=== PATIENT | female | born 1980 | race Caucasian/White ===

== ENCOUNTER 2017-01-23 16:47 | Emergency (ER) | payer OTHER ==
[~2017-01-23] VITALS: Ht 167.6 cm; Wt 99.5 kg
[~2017-01-23 16:47] MED LIST: ASPI81TA28 PO; LEVO100T7 PO; METF-384 PO; PRED-301 PO; PRENTAB26 PO; TYLOTC500 PO
[2017-01-23 16:50] VITALS: TEMP 36.9; Ht 167.6 cm; Wt 99.5 kg
[2017-01-23] MEDS ORDERED: HYDR-5688 PO (17:22)
[2017-01-23] MEDS ORDERED: LEVO112T4 PO (17:23)
[2017-01-23 17:26] LABS: BASO % 0.3 %; BASO ABS # 0.03 K/uL (0-0.2); COMPLETE YES; EOS % 1.2 %; HEMATOCRIT 42.3 % (37-47); IG% 0.4 %; LYMPH % 19.9 %; LYMPH ABS # 2.18 K/uL (1.2-3.4); MEAN CELL VOLUME 85.5 fL (80-100); MEAN CORPUSCULAR HEMOGLOBIN 28.5 pg (25-34); MEAN CORPUSCULAR HGB CONC 33.3 g/dl (32-36); MEAN PLATELET VOLUME 9.7 fL (7.4-10.4); MONO % 6.7 %; NEUT % 71.5 %; PLATELET COUNT 358 K/uL (130-400); RED BLOOD COUNT 4.95 M/uL (4.2-5.4); WHITE BLOOD COUNT 10.93 K/uL (4.8-10.8)
[2017-01-23] MEDS ORDERED: NVLGIPEN SC (17:27)
[2017-01-23] MEDS ORDERED: LVMIPEN SC (17:27)
[2017-01-23] MEDS ORDERED: LABETALOL HCL 100 MG TAB PO ONE (17:30)
[2017-01-23 18:10] LABS: BUN/CREATININE RATIO 15.6 (10-20); CALCIUM 9.3 mg/dl (8.5-10.1); CREATININE 0.7 mg/dl (0.60-1.20); POTASSIUM 3.8 mmol/L (3.5-5.1)
[2017-01-23 18:42] LABS: URINE APPEARANCE CLEAR (CLEAR); URINE BILIRUBIN NEG (NEG); URINE COLOR YELLOW; URINE EPITHELIAL CELL AUTO >30 /lpf (0-5); URINE NITRITE NEG (NEG); URINE SPECIFIC GRAVITY 1.025 (1.000-1.030); UROBILINOGEN NEG (NEG)
[2017-01-23 18:46] LABS: MANUAL MICROSCOPIC REQUIRED? NO; REVIEW REQ? YES
[2017-01-23 18:54] LABS: URINE MUCUS PRESENT (NONE PRSENT)
[2017-01-23] MEDS ORDERED: LBT/100 PO (19:04)
[2017-01-23 19:14] VITALS: BP 158/100; PULSE 94; O2SAT 98
--- NOTE | 2017-01-23 19:33 | EMERGENCY ROOM VISIT NOTE ---
History Report prepared by Johana: Roseanna Yip Under the Supervision of: Dr. Doron Olivares M.D. First contact with patient: 17:11 Chief Complaint: HYPERTENSION Stated Complaint: ELEVATED BP 178/108 History of Present Illness The patient is a 36 year old female who presents to the Emergency Room with complaints of constant hypertension beginning today. She reports that her examination proctor said that her pressure was 157/102 earlier today. The patient reports that she checked her blood pressure again and it was 176/108. She states that she is 5 weeks and has been 8 times, 2 of which were ectopic pregnancies. She denies being hypertensive with past pregnancies. The patient also reports taking prednisone for psoriatic arthritis. She denies a headache, chest pain, shortness of breath, swelling to extremities, urinary symptoms, abdominal pain and vaginal bleeding. Source of History: patient Onset: today Position: other (global) Quality: other (hypertension) Timing: constant Associated Symptoms: No headache, No chest pain, No SOB, No urinary symptoms Note: also denies: swelling to extremities and vaginal bleeding Review of Systems See HPI for pertinent positives & negatives. A total of 10 systems reviewed and were otherwise negative. Past Medical & Surgical Medical Problems: (1) Cholecystectomy (2) Kidney stone (3) Miscarriage (4) Thyroid disease (5) Type 2 diabetes mellitus Surgical Problems: (1) H/O: Family History Diabetes mellitus Gallbladder disease Heart disease Hypertension Social History Smoking Status: Never Smoker Alcohol Use: none Marital Status: in relationship Housing Status: lives with significant other Occupation Status: employed Current/Historical Medications Scheduled Aspirin (Aspirin Ec), 81 MG PO DAILY Insulin Aspart (Novolog Flexpen), 30-60 SC AC Insulin Detemir (Levemir Flextouch), 50-60 SC HS Labetalol Hcl (Normodyne), 100 MG PO BID Levothyroxine Sodium (Levothyroxine Sodium), 112 MCG PO DAILY Metformin Hcl (Glucophage), 2,000 MG PO BID Multivit/Min/Iron/Fol Ac/Pren ( Vitamin), 1 TAB PO DAILY Prednisone (Prednisone), 5 MG PO DAILY Scheduled PRN Hydrocodone/Acetaminophen 5MG/325MG ([place] 5MG/325MG), 1 TAB PO BID PRN for Pain Allergies Coded Allergies: Quinolones (Verified Allergy, Severe, HIVES, 01/23/17) pt is not aware of this allergy Ciprofloxacin (Unverified Allergy, Unknown, hives , 01/23/17) Physical Exam Vital Signs Date Time Temp Pulse Resp B/P (MAP) Pulse Ox O2 Delivery O2 Flow Rate FiO2 01/23/17 19:14 94 24 158/100 98 Room Air 01/23/17 18:55 101 20 165/103 98 Room Air 01/23/17 18:06 96 01/23/17 18:05 97 20 164/111 98 Room Air 01/23/17 16:50 36.9 117 20 185/114 97 Room Air Physical Exam Constitutional: Vital signs reviewed. Eyes: Pupils are equal round reactive to light. Conjunctiva are noninjected. ENT: Pharynx is clear without erythema or exudate. Mucous membranes are moist. Neck supple without meningeal signs. Respiratory: Clear to auscultation bilaterally. Breath sounds are equal bilaterally. Cardiovascular: Regular rate and rhythm. No rubs or gallops. GI: Soft, nondistended and nontender. Bowel sounds are present. Musculoskeletal: No peripheral edema. No lower extremity tenderness. Integumentary: No cyanosis. Neurological: The patient is awake and alert. No focal deficits. Psychiatric: Normal affect. Medical Decision & Procedures Laboratory Results 01/23/17 17:00 Red Blood Count 4.95, Mean Corpuscular Volume 85.5, Mean Corpuscular Hemoglobin 28.5, Mean Corpuscular Hemoglobin Concent 33.3, Mean Platelet Volume 9.7, Neutrophils (%) (Auto) 71.5, Lymphocytes (%) (Auto) 19.9, Monocytes (%) (Auto) 6.7, Eosinophils (%) (Auto) 1.2, Basophils (%) (Auto) 0.3, Neutrophils # (Auto) 7.82, Lymphocytes # (Auto) 2.18, Monocytes # (Auto) 0.73, Eosinophils # (Auto) 0.13, Basophils # (Auto) 0.03 01/23/17 17:00 Test 01/23/17 17:00 01/23/17 17:50 White Blood Count 10.93 K/uL (4.8-10.8) Red Blood Count 4.95 M/uL (4.2-5.4) Hemoglobin 14.1 g/dL (12.0-16.0) Hematocrit 42.3 % (37-47) Mean Corpuscular Volume 85.5 fL (80-100) Mean Corpuscular Hemoglobin 28.5 pg (25-34) Mean Corpuscular Hemoglobin Concent 33.3 g/dl (32-36) Platelet Count 358 K/uL (130-400) Mean Platelet Volume 9.7 fL (7.4-10.4) Neutrophils (%) (Auto) 71.5 % Lymphocytes (%) (Auto) 19.9 % Monocytes (%) (Auto) 6.7 % Eosinophils (%) (Auto) 1.2 % Basophils (%) (Auto) 0.3 % Neutrophils # (Auto) 7.82 K/uL (1.4-6.5) Lymphocytes # (Auto) 2.18 K/uL (1.2-3.4) Monocytes # (Auto) 0.73 K/uL (0.11-0.59) Eosinophils # (Auto) 0.13 K/uL (0-0.5) Basophils # (Auto) 0.03 K/uL (0-0.2) RDW Standard Deviation 44.9 fL (36.4-46.3) RDW Coefficient of Variation 14.4 % (11.5-14.5) Immature Granulocyte % (Auto) 0.4 % Immature Granulocyte # (Auto) 0.04 K/uL (0.00-0.02) Anion Gap 8.0 mmol/L (3-11) Est Creatinine Clear Calc Drug Dose 130.9 ml/min Estimated GFR () 128.3 Estimated GFR (Non- 110.7 BUN/Creatinine Ratio 15.6 (10-20) Calcium Level 9.3 mg/dl (8.5-10.1) Total Bilirubin 0.4 mg/dl (0.2-1) Direct Bilirubin 0.1 mg/dl (0-0.2) Aspartate Amino Transf (AST/SGOT) 20 U/L (15-37) Alanine Aminotransferase (ALT/SGPT) 43 U/L (12-78) Alkaline Phosphatase 64 U/L (45-117) Total Protein 7.5 gm/dl (6.4-8.2) Albumin 3.7 gm/dl (3.4-5.0) Urine Color YELLOW Urine Appearance CLEAR (CLEAR) Urine pH 6.0 (4.5-7.5) Urine Specific [place] 1.025 (1.000-1.030) Urine Protein 1+ (NEG) Urine Glucose (UA) NEG (NEG) Urine Ketones NEG (NEG) Urine Occult Blood NEG (NEG) Urine Nitrite NEG (NEG) Urine Bilirubin NEG (NEG) Urine Urobilinogen NEG (NEG) Urine Leukocyte Esterase NEG (NEG) Urine WBC (Auto) 1-5 /hpf (0-5) Urine RBC (Auto) 0-4 /hpf (0-4) Urine Hyaline Casts (Auto) 0 /lpf (0-5) Urine Epithelial Cells (Auto) >30 /lpf (0-5) Urine Bacteria (Auto) NEG (NEG) Urine Crystals CALCIUM OXALATE (NONE Urine Mucus PRESENT (NONE PRSENT) Laboratory results as reviewed by me. Medications Administered Medications (Trade) Dose Ordered Sig/Newton Route Start Time Stop Time Status Last Admin Dose Admin Labetalol HCl (Normodyne Tab) 100 mg NOW ONCE PO 01/23/17 17:30 01/23/17 17:31 DC 01/23/17 18:10 100 MG ECG Indication: other (hypertension) Rate (beats per minute): 95 Rhythm: normal sinus Findings: no acute ischemic change, no ectopy ED Course 171: The patient was evaluated in room C7. A complete history and physical exam was performed. 0: Ordered Labetalol HCl 100 mg PO. 0: I spoke with Dr. Upton and she agrees with Labetalol and outpatient follow-up. 1908: I talked about the treatment plan and recommendations with the patient. 1914: Upon reevaluation, the patient appeared to have improvement of her symptoms. I discussed tonight's findings with her. She verbalized agreement of the treatment plan. She was discharged home. Medical Decision This is a 36-year-old female presents with hypertension in the setting of . Differential diagnosis includes high blood pressure, preeclampsia, help syndrome, renal dysfunction. I did perform a limited focused review of portions of the patient's old chart on the electronic medical record. The patient has been hypertensive on previous visits. Blood Pressure Screening: Patient was found to have an elevated blood pressure and was referred to their primary doctor for recheck and further treatment. Medication Reconciliation: I attest that I have personally reviewed the patient' s current medication list. I did evaluate the patient as noted above. The patient is presenting with asymptomatic hypertension. I did talk to the ED pharmacist who recommended treating her with labetalol 100 mg twice a day. I did treat her with labetalol 100 mg by mouth here. IV access was established. The patient was placed on a continuous monitoring and evaluation advisor. I did order and personally review the patient's 12- lead EKG as described above. I did order and review the patient's blood work as noted in the electronic medical record. Urinalysis shows 1+ protein. I did discuss the test results with the patient. I did talk to the director medical affairs on- call who agreed with management with labetalol as an outpatient. I did discuss the plan with the patient who voiced understanding and agreement. The patient was discharged with a 20 day prescription of labetalol 100 mg twice a day. She was given return instructions as outlined below. Consults Time Called: 1849 Consulting Physician: Dr. Won Gamble Returned Call: [phone] Upton and she agrees with Labetalol and outpatient follow-up. Impression Primary Impression: Hypertension affecting in first trimester Scribe Attestation The scribe's documentation has been prepared under my direct and personally reviewed by me in its entirety. I confirm that the note above accurately reflects all work, treatment, procedures, and medical decision making performed by me. Departure Information Dispostion Home / Self-Care Prescriptions Labetalol Hcl (NORMODYNE) 100 Mg Tab 100 MG PO BID for 20 Days, #40 TAB Prov: Doron Olivares M.D. 01/23/17 Referrals Joel Conklin M.D. (PCP) Forms HOME CARE DOCUMENTATION FORM, IMPORTANT VISIT INFORMATION, WORK / SCHOOL INSTRUCTIONS Patient Instructions ED Hypertension [facility] [place], My [facility] Additional Instructions You have been examined and treated today on an emergency basis only. This is not a substitute for, or an effort to provide, complete comprehensive medical care. It is impossible to recognize and treat all injuries or illnesses in a single emergency department visit. It is therefore important that you follow up closely with your physician. Call as soon as possible for an appointment. Return for worsening symptoms or if you develop fever, vomiting, headaches, swelling in your legs, chest pain, shortness of breath or any other concerning symptoms.
== END 2017-01-23 19:36 | disposition home or self-care (01) ==
LOC: C.EDB 16:49 → C.EDC 19:36
DX: O10.011 Pre-existing essential hypertension complicating pregnancy, first trimester (principal); E07.9 Disorder of thyroid, unspecified; E11.9 Type 2 diabetes mellitus without complications; Z83.3 Family history of diabetes mellitus; Z82.49 Family history of ischemic heart disease and other diseases of the circulatory system; Z79.82 Long term (current) use of aspirin; Z79.4 Long term (current) use of insulin

== ENCOUNTER 2017-02-17 19:11 | Emergency (ER) | payer OTHER ==
[~2017-02-17] VITALS: Ht 167.6 cm; Wt 104.5 kg
[~2017-02-17 19:11] MED LIST changes: -ASPI81TA28 PO; +HYDR-5688 PO; -LEVO100T7 PO; +LEVO112T4 PO; +LVMIPEN SC; +NVLGIPEN SC; -PRED-301 PO; -PRENTAB26 PO; -TYLOTC500 PO
[2017-02-17 19:16] VITALS: TEMP 36.6; Ht 167.6 cm; Wt 104.5 kg
[2017-02-17] MEDS ORDERED: SODIUM CHLORIDE 0.9% 1000ML 1,000 ML IV STA (19:28)
--- NOTE | 2017-02-17 19:47 | EMERGENCY ROOM VISIT NOTE ---
History Report prepared by Johana: Zelda Christiansen Under the Supervision of: Dr. Victoriano Gentile M.D. First contact with patient: 19:26 Chief Complaint: ED VAG BLEEDING Stated Complaint: BLEEDING ALMOST 9 WEEKS PREG History of Present Illness The patient is a 36 year old female who presents to the Emergency Room with complaints of persistent vaginal bleeding for the past 3 hours. She is almost 9 weeks and reports she experienced a gush of "bright red blood" and continued bleeding at 1630 this afternoon. She noticed "a little bit of tissue" mixed in with the blood. Her last ultrasound was this past , 4 days ago. A normal fetus and heartbeat were seen on ultrasound and there were no concerns at that visit. The patient admits to a history of previous miscarriages and ectopic pregnancies. She believes this is her "6th or 8th" , but is not completely sure. The patient denies any current abdominal pain or cramping. She denies any recent fevers, chills, cough or cold symptoms, nausea, vomiting or diarrhea. 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 The patient denies any history of eclampsia but notes her blood pressure has been elevated with her current . Source of History: patient Onset: 1630 today Position: other (vagina) Quality: other (vaginal bleeding) Timing: other (persistent) Associated Symptoms: No fevers, No chills, No cough (cough or cold symptoms) , No nausea, No vomiting, No abdominal pain, No diarrhea Review of Systems See HPI for pertinent positives and negatives. A total of ten systems were reviewed and were otherwise negative. Past Medical & Surgical Medical Problems: (1) Cholecystectomy (2) Kidney stone (3) Miscarriage (4) Thyroid disease (5) Type 2 diabetes mellitus Surgical Problems: (1) H/O: Family History Diabetes mellitus Gallbladder disease Heart disease Hypertension Social History Smoking Status: Never Smoker Alcohol Use: none Drug Use: none Marital Status: in relationship Housing Status: lives with significant other Occupation Status: employed Current/Historical Medications Scheduled Aspirin (Aspirin Ec), 81 MG PO DAILY Insulin Aspart (Novolog Flexpen), 80 UNITS SQ TI Insulin Aspart (Novolog Flexpen), 40 UNITS SQ UD Insulin Detemir (Levemir Flextouch), 60-80 SC HS Labetalol HCl (Labetalol HCl), 200 MG PO BID Levothyroxine Sodium (Levothyroxine Sodium), 112 MCG PO DAILY Metformin Hcl (Glucophage), 1,000 MG PO BID Multivit/Min/Iron/Fol Ac/Pren ( Vitamin), 1 TAB PO DAILY Prednisone (Prednisone), 5 MG PO DAILY Scheduled PRN Hydrocodone/Acetaminophen 5MG/325MG ([place] 5MG/325MG), 1 TAB PO BID PRN for Pain Allergies Coded Allergies: Quinolones (Verified Allergy, Severe, HIVES, 01/23/17) pt is not aware of this allergy Ciprofloxacin (Unverified Allergy, Unknown, hives , 01/23/17) Physical Exam Vital Signs Date Time Temp Pulse Resp B/P (MAP) Pulse Ox O2 Delivery O2 Flow Rate FiO2 02/17/17 22:11 83 16 142/79 97 Room Air 02/17/17 21:42 85 16 140/73 97 Room Air 02/17/17 19:16 36.6 99 16 145/103 96 Room Air Physical Exam GENERAL: Awake, alert, well-appearing, in no distress HENT: Normocephalic, atraumatic. Oropharynx unremarkable. Dry mucous membranes. EYES: Normal conjunctiva. Sclera non-icteric. NECK: Supple. No nuchal rigidity. FROM. No JVD. RESPIRATORY: Clear to auscultation. CARDIAC: Regular rate, normal rhythm. Extremities warm and well perfused. Pulses equal. ABDOMEN: Soft, gravid abdomen consistent with a of 7 to 9 weeks. No tenderness to palpation. No rebound or guarding. PELVIS: Scant bleeding from closed cervical os, normal mucosa, no CMT. RECTAL: Deferred. MUSCULOSKELETAL: Chest examination reveals no tenderness. The back is symmetrical on inspection without obvious abnormality. There is no CVA tenderness to palpation. No joint edema. LOWER EXTREMITIES: Calves are equal size bilaterally and non-tender. No edema. No discoloration. NEURO: Normal sensorium. No sensory or motor deficits noted. SKIN: No rash or jaundice noted. Medical Decision & Procedures ER Provider Diagnostic Interpretation: Radiology results as stated below per my review and interpretation: A transabdominal bedside ultrasound showed a gestational sac, however this is limited by the ultrasound being transabdominal, so there is an indeterminate IUP. Radiology results as stated below per my review and radiologist interpretation: LIMITED (US) CLINICAL HISTORY: vaginal bleeding r/o AsB pain TECHNIQUE: Ultrasound COMPARISON STUDY: None FINDINGS: Single, viable intrauterine . Estimated gestational age is 7 weeks 6 days. heart rate 1 67 bpm. Small curvilinear. Represent [place] contraction. Right ovary measures 4 cm in maximum dimension. Contains a 2 cm corpus luteum cyst. Left ovary is not well seen due to overlying bowel content. IMPRESSION: 1. Single, viable intrauterine approximately 7 weeks 6 days gestational age. 2. A heartbeat is confirmed 3. 2 cm corpus luteum cyst right ovary The above report was generated using voice recognition software. It may contain grammatical, syntax or spelling errors. Electronically signed by: Grabiel Olsen M.D. 02/17/2017 9:10 PM Laboratory Results 02/17/17 20:10 Red Blood Count 4.50, Mean Corpuscular Volume 86.0, Mean Corpuscular Hemoglobin 29.1, Mean Corpuscular Hemoglobin Concent 33.9, Mean Platelet Volume 9.4, Neutrophils (%) (Auto) 67.3, Lymphocytes (%) (Auto) 21.7, Monocytes (%) (Auto) 7.5, Eosinophils (%) (Auto) 2.9, Basophils (%) (Auto) 0.2, Neutrophils # (Auto) 6.40, Lymphocytes # (Auto) 2.07, Monocytes # (Auto) 0.71, Eosinophils # (Auto) 0.28, Basophils # (Auto) 0.02 02/17/17 20:10 Test 02/17/17 20:05 02/17/17 20:10 02/17/17 20:20 Urine Color DK YELLOW Urine Appearance CLOUDY (CLEAR) Urine pH 6.0 (4.5-7.5) Urine Specific [place] 1.025 (1.000-1.030) Urine Protein TRACE (NEG) Urine Glucose (UA) NEG (NEG) Urine Ketones TRACE (NEG) Urine Occult Blood 3+ (NEG) Urine Nitrite NEG (NEG) Urine Bilirubin NEG (NEG) Urine Urobilinogen NEG (NEG) Urine Leukocyte Esterase NEG (NEG) Urine WBC (Auto) 1-5 /hpf (0-5) Urine RBC (Auto) 5-10 /hpf (0-4) Urine Hyaline Casts (Auto) 1-5 /lpf (0-5) Urine Epithelial Cells (Auto) >30 /lpf (0-5) Urine Bacteria (Auto) NEG (NEG) Urine Crystals CALCIUM OXALATE (NONE White Blood Count 9.52 K/uL (4.8-10.8) Red Blood Count 4.50 M/uL (4.2-5.4) Hemoglobin 13.1 g/dL (12.0-16.0) Hematocrit 38.7 % (37-47) Mean Corpuscular Volume 86.0 fL (80-100) Mean Corpuscular Hemoglobin 29.1 pg (25-34) Mean Corpuscular Hemoglobin Concent 33.9 g/dl (32-36) Platelet Count 273 K/uL (130-400) Mean Platelet Volume 9.4 fL (7.4-10.4) Neutrophils (%) (Auto) 67.3 % Lymphocytes (%) (Auto) 21.7 % Monocytes (%) (Auto) 7.5 % Eosinophils (%) (Auto) 2.9 % Basophils (%) (Auto) 0.2 % Neutrophils # (Auto) 6.40 K/uL (1.4-6.5) Lymphocytes # (Auto) 2.07 K/uL (1.2-3.4) Monocytes # (Auto) 0.71 K/uL (0.11-0.59) Eosinophils # (Auto) 0.28 K/uL (0-0.5) Basophils # (Auto) 0.02 K/uL (0-0.2) RDW Standard Deviation 46.6 fL (36.4-46.3) RDW Coefficient of Variation 14.9 % (11.5-14.5) Immature Granulocyte % (Auto) 0.4 % Immature Granulocyte # (Auto) 0.04 K/uL (0.00-0.02) Anion Gap 8.0 mmol/L (3-11) Est Creatinine Clear Calc Drug Dose 151.7 ml/min Estimated GFR () 133.5 Estimated GFR (Non- 115.2 BUN/Creatinine Ratio 13.2 (10-20) Calcium Level 9.3 mg/dl (8.5-10.1) Human Chorionic Gonadotropin, Quant 24643 mIU/mL Laboratory results reviewed by me Medications Administered Medications (Trade) Dose Ordered Sig/Newton Route Start Time Stop Time Status Last Admin Dose Admin Sodium Chloride 1,000 ml @ 999 mls/hr Q1H1M STAT IV 02/17/17 19:28 02/17/17 20:28 DC 02/17/17 20:15 999 MLS/HR ED Course 1927: NSS 1000 ml @ 999 mls/hr IV. 193: The patient was evaluated in room C9. A complete history and physical exam was performed. 2209: I reevaluated the patient. She is feeling better. I discussed her results and discharge instructions and she verbalized complete understanding and agreement. Medical Decision I reviewed the patient's past medical history, medications, and the nursing notes as described above. The differential diagnoses considered include spontaneous , placenta previa, placental abruption The patient with pmhx of pior miscarriages presents to the emergency department with vaginal bleeding that is being followed by her OB in the setting of being 9 weeks per HPI. Arrives in NAD. AF with BP 140s. H/H unremarkable. Rh+ , TVUS +IUP with heartbeat. Pelvic exam with small amount of blood from closed os. Slight protein in urine in setting of elevated BP. Denies any sx of JIMENEZ, vision changes, abd pain. Patient currently on BB and followed for her BP during this . Findings and plan for follow-up d/w patient. Patient agreeable and d/c'd per discharge instructions. Blood Pressure Screening Patient's blood pressure: Elevated blood pressure Blood pressure disposition: Referred to PCP (The patient will be referred to her [employer] P[employer]ER for her elevated blood pressure) Impression Primary Impression: First trimester bleeding Scribe Attestation The scribe's documentation has been prepared under my direction and personally reviewed by me in its entirety. I confirm that the note above accurately reflects all work, treatment, procedures, and medical decision making performed by me. Departure Information Dispostion Home / Self-Care Referrals Joel Conklin M.D. (PCP) Patient Instructions Bleeding Early Preg, ED Proteinuria, My [facility] Additional Instructions Please follow up with your electricity trading analyst tomorrow for reevaluation to discuss your vaginal bleeding, and your elevated blood pressure, and the small amount of protein your your urine today. Your ultrasound showed a normal uterine . Otherwise, your exam, ultrasound, and lab results did not show signs of an emergent condition at this time. Return to the emergency department for worsening symptoms as described in the accompanying instructions.
[2017-02-17] MEDS ORDERED: LBT200 PO (19:59)
[2017-02-17] MEDS ORDERED: NVLGI/PEN SQ ×2 (19:59)
[2017-02-17 20:22] LABS: BASO % 0.2 %; BASO ABS # 0.02 K/uL (0-0.2); COMPLETE YES; EOS % 2.9 %; HEMATOCRIT 38.7 % (37-47); IG% 0.4 %; LYMPH % 21.7 %; LYMPH ABS # 2.07 K/uL (1.2-3.4); MEAN CORPUSCULAR HEMOGLOBIN 29.1 pg (25-34); MEAN CORPUSCULAR HGB CONC 33.9 g/dl (32-36); MEAN PLATELET VOLUME 9.4 fL (7.4-10.4); MONO % 7.5 %; NEUT % 67.3 %; PLATELET COUNT 273 K/uL (130-400); WHITE BLOOD COUNT 9.52 K/uL (4.8-10.8)
[2017-02-17 20:38] LABS: BUN/CREATININE RATIO 13.2 (10-20); CALCIUM 9.3 mg/dl (8.5-10.1); CREATININE 0.62 mg/dl (0.60-1.20); POTASSIUM 3.8 mmol/L (3.5-5.1)
[2017-02-17] MEDS ORDERED: PRED-301 PO (20:45)
[2017-02-17] MEDS ORDERED: ASPI81TA28 PO (20:45)
[2017-02-17 20:50] LABS: URINE APPEARANCE CLOUDY (CLEAR); URINE BILIRUBIN NEG (NEG); URINE COLOR DK YELLOW; URINE EPITHELIAL CELL AUTO >30 /lpf (0-5); URINE NITRITE NEG (NEG); URINE SPECIFIC GRAVITY 1.025 (1.000-1.030); UROBILINOGEN NEG (NEG); ZZUR CULT IF INDIC CLEAN CATCH NO
[2017-02-17 20:54] LABS: MANUAL MICROSCOPIC REQUIRED? NO; REVIEW REQ? YES
--- NOTE | 2017-02-17 21:11 | DIAGNOSTIC IMAGING REPORT ---
LIMITED (US) CLINICAL HISTORY: vaginal bleeding r/o AsB pain TECHNIQUE: Ultrasound COMPARISON STUDY: None FINDINGS: Single, viable intrauterine . Estimated gestational age is 7 weeks 6 days. heart rate 1 67 bpm. Small curvilinear. Represent [place] contraction. Right ovary measures 4 cm in maximum dimension. Contains a 2 cm corpus luteum cyst. Left ovary is not well seen due to overlying bowel content. IMPRESSION: 1. Single, viable intrauterine approximately 7 weeks 6 days gestational age. 2. A heartbeat is confirmed 3. 2 cm corpus luteum cyst right ovary The above report was generated using voice recognition software. It may contain grammatical, syntax or spelling errors. Electronically signed by: Grabiel Olsen M.D. 02/17/2017 9:10 PM Dictated Date/Time: 02/17/2017 9:07 PM
[2017-02-17] MEDS ORDERED: PRENTAB26 PO (21:22)
[2017-02-17 22:11] VITALS: BP 142/79; PULSE 83; O2SAT 97
== END 2017-02-17 22:31 | disposition home or self-care (01) ==
LOC: C.EDB 19:12 → C.EDC 22:31
DX: O26.891 Other specified pregnancy related conditions, first trimester (principal); O26.851 Spotting complicating pregnancy, first trimester; N93.9 Abnormal uterine and vaginal bleeding, unspecified; Z3A.08 8 weeks gestation of pregnancy; O24.111 Pre-existing type 2 diabetes mellitus, in pregnancy, first trimester; E11.9 Type 2 diabetes mellitus without complications; Z87.59 Personal history of other complications of pregnancy, childbirth and the puerperium; Z87.442 Personal history of urinary calculi; Z98.891 History of uterine scar from previous surgery; Z90.49 Acquired absence of other specified parts of digestive tract; Z83.3 Family history of diabetes mellitus; Z82.49 Family history of ischemic heart disease and other diseases of the circulatory system; Z79.82 Long term (current) use of aspirin; Z79.4 Long term (current) use of insulin; Z79.84 Long term (current) use of oral hypoglycemic drugs

== ENCOUNTER 2017-03-08 17:20 | Emergency (ER) | payer OTHER ==
[~2017-03-08] VITALS: Ht 167.6 cm; Wt 101.3 kg
[~2017-03-08 17:20] MED LIST changes: +ASPI81TA28 PO; +LBT200 PO; +NVLGI/PEN SQ; -NVLGIPEN SC; +PRED-301 PO; +PRENTAB26 PO
[2017-03-08 17:26] VITALS: TEMP 37.1; Ht 167.6 cm; Wt 101.3 kg
[2017-03-08] MEDS ORDERED: MoRPHine SULFATE 4 MG/ML 1 ML CARP\\VIAL IV STA ×2 (17:59→20:19)
[2017-03-08] MEDS ORDERED: SODIUM CHLORIDE 0.9% 1000ML 1,000 ML IV SCH (18:00)
[2017-03-08] MEDS ORDERED: PROG1CAP PV (18:06)
[2017-03-08 18:10] LABS: BASO % 0.1 %; BASO ABS # 0.01 K/uL (0-0.2); COMPLETE YES; EOS % 2.4 %; HEMATOCRIT 39.2 % (37-47); IG% 0.3 %; LYMPH % 19.8 %; LYMPH ABS # 1.76 K/uL (1.2-3.4); MEAN CELL VOLUME 87.3 fL (80-100); MEAN CORPUSCULAR HEMOGLOBIN 28.7 pg (25-34); MEAN CORPUSCULAR HGB CONC 32.9 g/dl (32-36); MEAN PLATELET VOLUME 9.6 fL (7.4-10.4); NEUT % 65.4 %; PLATELET COUNT 306 K/uL (130-400); RED BLOOD COUNT 4.49 M/uL (4.2-5.4); WHITE BLOOD COUNT 8.87 K/uL (4.8-10.8)
[2017-03-08 18:18] LABS: BUN/CREATININE RATIO 15.2 (10-20); CALCIUM 8.8 mg/dl (8.5-10.1); CREATININE 0.6 mg/dl (0.60-1.20); POTASSIUM 3.8 mmol/L (3.5-5.1)
[2017-03-08 18:21] LABS: ALB/GLOB RATIO 0.9 (0.9-2)
[2017-03-08 18:21] LABS: URINE APPEARANCE CLOUDY (CLEAR); URINE BILIRUBIN NEG (NEG); URINE COLOR DK YELLOW; URINE EPITHELIAL CELL AUTO >30 /lpf (0-5); URINE NITRITE NEG (NEG); UROBILINOGEN NEG (NEG)
[2017-03-08 18:28] LABS: MANUAL MICROSCOPIC REQUIRED? NO; REVIEW REQ? YES
--- NOTE | 2017-03-08 19:01 | EMERGENCY ROOM VISIT NOTE ---
History First contact with patient: 17:31 Chief Complaint: ABDOMINAL PAIN Stated Complaint: LOWER RIGHT ABDOMEN PAIN-PHYSICIAN REFERRED Nursing Triage Summary: triage note: pt reports she is 11 weeks preg. pt reports right abd pain since friday. pt was seen by pcp and sent to ed for further eval. pt denies any nausea, vomitting, diarrhea. History of Present Illness The patient is a 36 year old female who presents to the Emergency Room with complaints of right lower quadrant abdominal pain that has been going on for the last 4 days. She describes it as a dull ache. It has been constant. It has not improved. She has not tried anything at home for pain. The patient is 11 weeks . She is and has had multiple miscarriages and ectopic pregnancies. She does report vaginal bleeding. This is not new. She has had bleeding throughout this . The patient saw her OB doctor 5 days ago for vaginal bleeding. An ultrasound was performed. No abnormalities were found. The patient denies any associated symptoms such as nausea, vomiting, diarrhea, constipation or fever. She was evaluated by her primary care physician today who sent her here for further evaluation. She denies any urinary symptoms such as dysuria, hematuria or flank pain Review of Systems 10 system review performed and negative unless noted in HPI or below Past Medical/Surgical History Medical Problems: (1) Cholecystectomy (2) Kidney stone (3) Miscarriage (4) Thyroid disease (5) Type 2 diabetes mellitus Surgical Problems: (1) H/O: Family History Diabetes mellitus Gallbladder disease Heart disease Hypertension Social History Smoking Status: Never Smoker Alcohol Use: none Drug Use: none Marital Status: in relationship Housing Status: lives with significant other Occupation Status: employed Current/Historical Medications Scheduled Aspirin (Aspirin Ec), 81 MG PO DAILY Insulin Aspart (Novolog Flexpen), 40-75 UNITS SQ EVERY MEALS Insulin Detemir (Levemir Flextouch), 70 UNITS SC HS Labetalol HCl (Labetalol HCl), 200 MG PO BID Levothyroxine Sodium (Levothyroxine Sodium), 112 MCG PO DAILY Metformin Hcl (Glucophage), 1,000 MG PO BID Multivit/Min/Iron/Fol Ac/Pren ( Vitamin), 1 TAB PO DAILY Scheduled PRN Hydrocodone/Acetaminophen 5MG/325MG ([place]mar 5MG/325MG), 1 TAB PO BID PRN for Pain Progesterone Micronized (Progesterone), 200 MG PV DAILY PRN for Allergies Coded Allergies: Quinolones (Verified Allergy, Severe, HIVES, 03/08/17) pt is not aware of this allergy Ciprofloxacin (Unverified Allergy, Unknown, hives , 03/08/17) Physical Exam Vital Signs Date Time Temp Pulse Resp B/P (MAP) Pulse Ox O2 Delivery O2 Flow Rate FiO2 03/08/17 18:20 78 15 130/86 99 Room Air 03/08/17 17:26 37.1 96 18 142/88 99 Room Air Physical Exam VITALS: Vitals are noted on the nurse's note and reviewed by myself. Vital signs stable. GENERAL: 36-year-old female, in no acute distress, nondiaphoretic, well- developed well-nourished. SKIN: The skin was without rashes, erythema, edema, or bruising. HEAD: Normocephalic atraumatic. MOUTH: Mucous membranes moist. NECK: Supple without nuchal rigidity. No JVD. HEART: Regular rate and rhythm without murmurs gallops or rubs. LUNGS: Clear to auscultation bilaterally without wheezes, rales or rhonchi. No accessory muscle use. ABDOMEN: Positive bowel sounds x 4.Soft, tenderness to palpation in the right lower quadrant, without organomegaly. No guarding or rebound tenderness. MUSCULOSKELETAL: No muscle atrophy, erythema, or edema noted. Strength 5/5 throughout. NEURO: Patient was alert and oriented to person place and time. Normal sensation to touch. No focal neurological deficits. Medical Decision & Procedures ER Provider Diagnostic Interpretation: Patient Name: REZA CHUN Unit Number: [id number] Dictated: 03/08/172000 Transcribed: 03/08/172000 PBS Printed Date/Time: [~ rep prt dt]/[~ rep prt tm] [~ rep ct labl] - [~ rep ct ivnm] [facility] [place] [address] Dictated: 03/08/172000 Transcribed: 03/08/172000 PBS Printed Date/Time: [~ rep prt dt]/[~ rep prt tm] [~ rep ct labl] - [~ rep ct ivnm] <14 WKS SINGLE CLINICAL HISTORY: 36 years-old Female presenting with vag bleeding. TECHNIQUE: Real-time grayscale and color and spectral Doppler ultrasound imaging of the pelvis was performed using a transabdominal probe. COMPARISON: None. FINDINGS: Uterus: Single live intrauterine with crown-rump length of 4.3 cm corresponding to an estimated gestational age of 11 weeks 1 day and an estimated date of delivery 09/26/2017. Posterior fundal placental implantation. The uterine fundus appears heterogeneous and enlarged with a focal well-defined hypoechoic region measuring 6.2 x 5.3 x 8.5 cm, likely a uterine fibroid. heart rate 171 beats per minute. Normal amniotic fluid volume. No perigestational fluid to suggest hemorrhage. Cervix trace fluid noted within the endocervical canal. Right adnexa: Right ovary contains a corpus luteum. Right ovary is top normal in size and measures 4.6 x 3.2 x 3.5 cm. Normal color Doppler flow and arterial and venous waveforms within the ovarian parenchyma. Left adnexa: Left ovary normal. Left ovary measures 4.6 x 2.5 x 3.1 cm. Normal color Doppler flow and arterial and venous waveforms within the ovarian parenchyma. Other: No free fluid. IMPRESSION: 1. Single live intrauterine with estimated gestational age of 11 weeks 1 day and estimated date of delivery 09/26/2017. 2. Trace fluid within the endocervical canal, which could represent blood products. No convincing evidence of perigestational hemorrhage. Gynecologic consultation for direct visualization of the cervix is suggested to ensure no dilatation. 3. Heterogeneity of the uterine fundus with well-defined focal hypoechoic region likely represents a uterine fibroid. 4. Prominent right ovary with maintenance of vascular flow. The top normal size is likely a consequence of the presence of a corpus luteum. No convincing evidence of ovarian torsion. Electronically signed by: Joel Griffiths M.D. 03/08/2017 8:08 PM Dictated Date/Time: 03/08/2017 8:01 PM The status of this report is Signed. Draft = Not yet reviewed or approved by Radiologist. Signed = Reviewed and approved by Radiologist. <AttendingPhy></AttendingPhy> <FamilyPhy>Joel Conklin M.D.</FamilyPhy> < PrimaryPhy>Joel Conklin M.D.</PrimaryPhy> <UnitNumber>[id number]</UnitNumber> < VisitNumber>[id number]</VisitNumber> <PatientName>REZA CHUN</PatientName > <DateOfBirth>1980</DateOfBirth> <Location>[facility]</Location> <ServiceDate> 03/08/17</ServiceDate> <MNE>ESINDI</MNE> <OrderingPhy>Marlys Schaefer WES</ OrderingPhy> <OrderingPhyMNE>f rep ord dr graf</OrderingPhyMNE> <DictatingPhyMNE> f rep dict dr graf</DictatingPhyMNE> <CCListMNE>f rep ct mne</CCListMNE> < AdmittingPhyMNE>f pt admit dr graf</AdmittingPhyMNE> <AttendingPhyMNE>f pt attend dr graf</AttendingPhyMNE> <ConsultingPhyMNE>f pt consult dr graf</ConsultingPhyMNE> <FamilyPhyMNE>f pt fam dr graf</FamilyPhyMNE> <OtherPhyMNE>f pt other dr graf</OtherPhyMNE> < PrimaryPhyMNE>f pt prim care dr graf</PrimaryPhyMNE> <ReferringPhyMNE>f pt referring dr graf</ReferringPhyMNE> (RENAL)RETROPERITON COMP CLINICAL HISTORY: 36 years-old Female presenting with ? hydro or stone. TECHNIQUE: Real-time grayscale and limited color Doppler ultrasound imaging of the kidneys and bladder was performed. COMPARISON: None. FINDINGS: Right kidney: Normal echogenicity. Right kidney measures 13.4 cm. No hydronephrosis. No convincing evidence of calculus or mass. Normal perfusion. Left kidney: Normal echogenicity. Left kidney measures 12.4 cm. No hydronephrosis. No convincing evidence of calculus or mass. Normal perfusion. Bladder: No bladder wall thickening. Bilateral ureteral jets present. Other: Hyperechogenicity of the visualized hepatic parenchyma. IMPRESSION: 1. Normal renal ultrasound. No obstruction. 2. Suggestion of hepatic steatosis. Electronically signed by: Joel Griffiths M.D. 03/08/2017 8:01 PM Dictated Date/Time: 03/08/2017 8:00 PM The status of this report is Signed. Draft = Not yet reviewed or approved by Radiologist. Signed = Reviewed and approved by Radiologist. APPENDIX ULTRASOUND CLINICAL HISTORY: 36 years-old Female presenting with r/o appy, right lower quadrant pain. TECHNIQUE: Real-time grayscale and limited color Doppler ultrasound imaging of the right lower quadrant was performed to evaluate the appendix. COMPARISON: None. FINDINGS: Appendix not visualized. No free fluid. At the right lower quadrant site of clinical interest, the enlarged right ovary is noted. IMPRESSION: Appendix not visualized. At the site of clinical interest in the right lower quadrant region of pain, the enlarged right ovary is noted. Please see separately dictated ultrasound of the pelvis. Electronically signed by: Joel Griffiths M.D. 03/08/2017 8:00 PM Dictated Date/Time: 03/08/2017 7:59 PM The status of this report is Signed. Draft = Not yet reviewed or approved by Radiologist. Signed = Reviewed and approved by Radiologist. Laboratory Results 03/08/17 17:46 Red Blood Count 4.49, Mean Corpuscular Volume 87.3, Mean Corpuscular Hemoglobin 28.7, Mean Corpuscular Hemoglobin Concent 32.9, Mean Platelet Volume 9.6, Neutrophils (%) (Auto) 65.4, Lymphocytes (%) (Auto) 19.8, Monocytes (%) (Auto) 12.0, Eosinophils (%) (Auto) 2.4, Basophils (%) (Auto) 0.1, Neutrophils # (Auto ) 5.80, Lymphocytes # (Auto) 1.76, Monocytes # (Auto) 1.06, Eosinophils # (Auto ) 0.21, Basophils # (Auto) 0.01 03/08/17 17:46 Test 03/08/17 17:35 03/08/17 17:46 Urine Color DK YELLOW Urine Appearance CLOUDY (CLEAR) Urine pH 6.0 (4.5-7.5) Urine Specific [place] 1.030 (1.000-1.030) Urine Protein TRACE (NEG) Urine Glucose (UA) NEG (NEG) Urine Ketones TRACE (NEG) Urine Occult Blood 3+ (NEG) Urine Nitrite NEG (NEG) Urine Bilirubin NEG (NEG) Urine Urobilinogen NEG (NEG) Urine Leukocyte Esterase NEG (NEG) Urine WBC (Auto) 1-5 /hpf (0-5) Urine RBC (Auto) 0-4 /hpf (0-4) Urine Hyaline Casts (Auto) 1-5 /lpf (0-5) Urine Epithelial Cells (Auto) >30 /lpf (0-5) Urine Bacteria (Auto) NEG (NEG) Urine Crystals CALCIUM OXALATE (NONE White Blood Count 8.87 K/uL (4.8-10.8) Red Blood Count 4.49 M/uL (4.2-5.4) Hemoglobin 12.9 g/dL (12.0-16.0) Hematocrit 39.2 % (37-47) Mean Corpuscular Volume 87.3 fL (80-100) Mean Corpuscular Hemoglobin 28.7 pg (25-34) Mean Corpuscular Hemoglobin Concent 32.9 g/dl (32-36) Platelet Count 306 K/uL (130-400) Mean Platelet Volume 9.6 fL (7.4-10.4) Neutrophils (%) (Auto) 65.4 % Lymphocytes (%) (Auto) 19.8 % Monocytes (%) (Auto) 12.0 % Eosinophils (%) (Auto) 2.4 % Basophils (%) (Auto) 0.1 % Neutrophils # (Auto) 5.80 K/uL (1.4-6.5) Lymphocytes # (Auto) 1.76 K/uL (1.2-3.4) Monocytes # (Auto) 1.06 K/uL (0.11-0.59) Eosinophils # (Auto) 0.21 K/uL (0-0.5) Basophils # (Auto) 0.01 K/uL (0-0.2) RDW Standard Deviation 46.0 fL (36.4-46.3) RDW Coefficient of Variation 14.3 % (11.5-14.5) Immature Granulocyte % (Auto) 0.3 % Immature Granulocyte # (Auto) 0.03 K/uL (0.00-0.02) Anion Gap 7.0 mmol/L (3-11) Est Creatinine Clear Calc Drug Dose 154.2 ml/min Estimated GFR () 135.0 Estimated GFR (Non- 116.4 BUN/Creatinine Ratio 15.2 (10-20) Calcium Level 8.8 mg/dl (8.5-10.1) Total Bilirubin 0.5 mg/dl (0.2-1) Aspartate Amino Transf (AST/SGOT) 19 U/L (15-37) Alanine Aminotransferase (ALT/SGPT) 30 U/L (12-78) Alkaline Phosphatase 60 U/L (45-117) Total Protein 7.0 gm/dl (6.4-8.2) Albumin 3.3 gm/dl (3.4-5.0) Globulin 3.7 gm/dl (2.5-4.0) Albumin/Globulin Ratio 0.9 (0.9-2) Lipase 154 U/L (73-393) Human Chorionic Gonadotropin, Quant 99500 mIU/mL Medications Administered Medications (Trade) Dose Ordered Sig/[place] Route Start Time Stop Time Status Last Admin Dose Admin Morphine Sulfate (MoRPHine SULFATE INJ) 4 mg ONE STAT IV 03/08/17 17:59 03/08/17 18:02 DC 03/08/17 18:19 4 MG Sodium Chloride 1,000 ml @ 200 mls/hr Q5H IV 03/08/17 18:00 04/07/17 17:59 03/08/17 18:19 200 MLS/HR Morphine Sulfate (MoRPHine SULFATE INJ) 4 mg ONE STAT IV 03/08/17 20:19 03/08/17 20:20 DC 03/08/17 20:33 4 MG ED Course Patient was seen and examined Vital signs including blood pressure were reviewed medications list was verified with patient Labs were obtained, and a saline lock was established The patient was given 1 dose of morphine 4 mg IV for pain. She was hydrated with 1 L of normal saline. Imaging was performed and reviewed The patient was reassessed and still complaining of pain. She was given an additional dose of morphine. We discussed her results. The case was discussed with [employer]. I reviewed discharge instructions the patient. They voiced understanding and had no further questions. Medical Decision Different diagnosis: Threatened miscarriage, subchorionic hemorrhage, appendicitis, kidney stone, diverticulitis, ovarian cyst, ovarian torsion This patient is a pleasant 36-year-old female that presented to the ED with a main complaint of right lower quadrant abdominal pain she also had vaginal bleeding, this is however not new. She is following closely with her OB for this as she has had multiple miscarriages and ectopic pregnancies. On exam, she did have tenderness in the right lower quadrant. The patient did not have any leukocytosis. She did not have any rebound tenderness. She did not have a fever. If this were appendicitis, 4 days out, the patient would likely be much sicker. I have a very low suspicion of appendicitis. Her ultrasound revealed an enlarged ovary and corpus luteum. The case was discussed with Dr. Ocampo from [employer]. She believes this is likely the source of the pain and it should go away on its own. I did notify Dr. Ocampo that she takes hydrocodone daily. She notes that she will follow-up with the patient early next week to discuss this and to reevaluate her. The patient and the patient's are comfortable with this plan. She did have good pain relief in the emergency department. Consults Consulting Physician: Dr. Ocampo Impression Primary Impression: Corpus luteum cyst of right ovary Departure Information Dispostion Home / Self-Care Condition GOOD Referrals Joel Conklin M.D. (PCP) Canan. Vazquez MD Patient Instructions My [facility] Additional Instructions You were evaluated in the emergency department for abdominal pain. There was a corpus luteum present on your ovary. This is likely the source of your pain. Please continue your current pain medication as prescribed. This was discussed with your [employer] doctor. It is preferred that at some point you be weaned off of this medication. Please do not insert anything in the vagina until you follow up with [employer]ER Please return to the emergency department with any new or worsening symptoms such as: Fever, increased vaginal bleeding, nausea vomiting or severe worsening pain
--- NOTE | 2017-03-08 20:01 | DIAGNOSTIC IMAGING REPORT ---
APPENDIX ULTRASOUND CLINICAL HISTORY: 36 years-old Female presenting with r/o appy, right lower quadrant pain. TECHNIQUE: Real-time grayscale and limited color Doppler ultrasound imaging of the right lower quadrant was performed to evaluate the appendix. COMPARISON: None. FINDINGS: Appendix not visualized. No free fluid. At the right lower quadrant site of clinical interest, the enlarged right ovary is noted. IMPRESSION: Appendix not visualized. At the site of clinical interest in the right lower quadrant region of pain, the enlarged right ovary is noted. Please see separately dictated ultrasound of the pelvis. Electronically signed by: Joel Griffiths M.D. 03/08/2017 8:00 PM Dictated Date/Time: 03/08/2017 7:59 PM
--- NOTE | 2017-03-08 20:02 | DIAGNOSTIC IMAGING REPORT ---
(RENAL)RETROPERITON COMP CLINICAL HISTORY: 36 years-old Female presenting with ? hydro or stone. TECHNIQUE: Real-time grayscale and limited color Doppler ultrasound imaging of the kidneys and bladder was performed. COMPARISON: None. FINDINGS: Right kidney: Normal echogenicity. Right kidney measures 13.4 cm. No hydronephrosis. No convincing evidence of calculus or mass. Normal perfusion. Left kidney: Normal echogenicity. Left kidney measures 12.4 cm. No hydronephrosis. No convincing evidence of calculus or mass. Normal perfusion. Bladder: No bladder wall thickening. Bilateral ureteral jets present. Other: Hyperechogenicity of the visualized hepatic parenchyma. IMPRESSION: 1. Normal renal ultrasound. No obstruction. 2. Suggestion of hepatic steatosis. Electronically signed by: Joel Griffiths M.D. 03/08/2017 8:01 PM Dictated Date/Time: 03/08/2017 8:00 PM
--- NOTE | 2017-03-08 20:09 | DIAGNOSTIC IMAGING REPORT ---
<14 WKS SINGLE CLINICAL HISTORY: 36 years-old Female presenting with vag bleeding. TECHNIQUE: Real-time grayscale and color and spectral Doppler ultrasound imaging of the pelvis was performed using a transabdominal probe. COMPARISON: None. FINDINGS: Uterus: Single live intrauterine with crown-rump length of 4.3 cm corresponding to an estimated gestational age of 11 weeks 1 day and an estimated date of delivery 09/26/2017. Posterior fundal placental implantation. The uterine fundus appears heterogeneous and enlarged with a focal well-defined hypoechoic region measuring 6.2 x 5.3 x 8.5 cm, likely a uterine fibroid. heart rate 171 beats per minute. Normal amniotic fluid volume. No perigestational fluid to suggest hemorrhage. Cervix trace fluid noted within the endocervical canal. Right adnexa: Right ovary contains a corpus luteum. Right ovary is top normal in size and measures 4.6 x 3.2 x 3.5 cm. Normal color Doppler flow and arterial and venous waveforms within the ovarian parenchyma. Left adnexa: Left ovary normal. Left ovary measures 4.6 x 2.5 x 3.1 cm. Normal color Doppler flow and arterial and venous waveforms within the ovarian parenchyma. Other: No free fluid. IMPRESSION: 1. Single live intrauterine with estimated gestational age of 11 weeks 1 day and estimated date of delivery 09/26/2017. 2. Trace fluid within the endocervical canal, which could represent blood products. No convincing evidence of perigestational hemorrhage. Gynecologic consultation for direct visualization of the cervix is suggested to ensure no dilatation. 3. Heterogeneity of the uterine fundus with well-defined focal hypoechoic region likely represents a uterine fibroid. 4. Prominent right ovary with maintenance of vascular flow. The top normal size is likely a consequence of the presence of a corpus luteum. No convincing evidence of ovarian torsion. Electronically signed by: Joel Griffiths M.D. 03/08/2017 8:08 PM Dictated Date/Time: 03/08/2017 8:01 PM
[2017-03-08 22:16] VITALS: BP 138/85; PULSE 73; O2SAT 96
== END 2017-03-08 22:17 | disposition home or self-care (01) ==
LOC: C.EDB 17:21
DX: N83.11 Corpus luteum cyst of right ovary (principal); E11.9 Type 2 diabetes mellitus without complications; Z87.442 Personal history of urinary calculi; Z90.49 Acquired absence of other specified parts of digestive tract; Z79.4 Long term (current) use of insulin; Z79.82 Long term (current) use of aspirin; Z79.84 Long term (current) use of oral hypoglycemic drugs; Z79.899 Other long term (current) drug therapy; Z88.2 Allergy status to sulfonamides; Z88.8 Allergy status to other drugs, medicaments and biological substances

== ENCOUNTER 2017-04-15 07:48 | Emergency (ER) | payer OTHER ==
[~2017-04-15] VITALS: Ht 167.6 cm; Wt 98.9 kg
[~2017-04-15 07:48] MED LIST changes: -PRED-301 PO; +PROG1CAP PV
[2017-04-15 07:52] VITALS: TEMP 37; Ht 167.6 cm; Wt 98.9 kg
[2017-04-15] MEDS ORDERED: PRD/1 PO (08:06)
[2017-04-15] MEDS ORDERED: AMOX500C3 PO (08:06)
[2017-04-15] MEDS ORDERED: VNTHFA/IN INH (08:06)
[2017-04-15] MEDS ORDERED: BIOF500C2 PO (08:06)
[2017-04-15] MEDS ORDERED: DOCU-94 PO (08:06)
[2017-04-15] MEDS ORDERED: PROG1GEL PV (08:06)
[2017-04-15] MEDS ORDERED: GUAIFENESIN SUGAR FREE 100 MG/5 ML UDC PO STA (08:23)
[2017-04-15] MEDS ORDERED: CODEINE SULFATE 15 MG TAB PO STA (08:23)
[2017-04-15] MEDS ORDERED: SODIUM CHLORIDE 0.9% 1000ML 1,000 ML IV STA (08:23)
[2017-04-15] MEDS ORDERED: ALBUT/IPRATROP 3MG/0.5MG NEB 3 ML VIAL INH STA (08:23)
[2017-04-15] MEDS ORDERED: CODEINE SULFATE 30 MG TAB PO STA (08:50)
[2017-04-15 09:12] VITALS: O2SAT 96
[2017-04-15 09:14] LABS: BASO % 0.1 %; BASO ABS # 0.01 K/uL (0-0.2); COMPLETE YES; HEMATOCRIT 37.6 % (37-47); IG% 0.6 %; LYMPH % 8.6 %; LYMPH ABS # 1.21 K/uL (1.2-3.4); MEAN CELL VOLUME 85.3 fL (80-100); MEAN CORPUSCULAR HEMOGLOBIN 28.1 pg (25-34); MEAN PLATELET VOLUME 9.3 fL (7.4-10.4); MONO % 8.9 %; NEUT % 80.8 %; PLATELET COUNT 330 K/uL (130-400); RED BLOOD COUNT 4.41 M/uL (4.2-5.4)
[2017-04-15 09:20] LABS: URINE APPEARANCE CLOUDY (CLEAR); URINE COLOR DK YELLOW; URINE EPITHELIAL CELL AUTO >30 /lpf (0-5); URINE NITRITE NEG (NEG); URINE PH 6.5 (4.5-7.5); URINE SPECIFIC GRAVITY 1.029 (1.000-1.030); UROBILINOGEN NEG (NEG)
--- NOTE | 2017-04-15 09:28 | EMERGENCY ROOM VISIT NOTE ---
History First contact with patient: 08:01 Chief Complaint: RESPIRATORY PROBLEMS Stated Complaint: TROUBLE BREATHING, 17 WKS. PREG. Nursing Triage Summary: pt currently being tx for bronchitis with axithromycin , prednisone, and inhaler. difficutly sleeping last night, with increased cough, mucus yellow in color History of Present Illness The patient is a 37 year old female who presents to the Emergency Room with complaints of cough for 1.5 weeks. It has been getting progressively worse over the past 5 days. She states that she went to an urgent care over the weekend and was placed on amoxicillin and albuterol inhaler. She called her PCP yesterday when she was not improving, and they changed her to a Z-Kenneth and added prednisone. She states she is here today because she continues to have coughing fits that are keeping her up at night. She denies shortness of breath , chest pain, dizziness or syncope, coughing up blood, leg pain or swelling, fevers or chills, abdominal pain, nausea or vomiting, diarrhea, urinary symptoms , rash. She is 17 weeks . and history of Type 2 DM. Review of Systems A complete 10 point review of systems was reviewed with the patient with pertinent positives and negatives as per history of present illness. All else were negative. Past Medical/Surgical History Medical Problems: (1) Cholecystectomy (2) Kidney stone (3) Miscarriage (4) Thyroid disease (5) Type 2 diabetes mellitus Surgical Problems: (1) H/O: Family History Diabetes mellitus Gallbladder disease Heart disease Hypertension Social History Smoking Status: Former Smoker Alcohol Use: none Drug Use: none Marital Status: in relationship Housing Status: lives with significant other Occupation Status: employed Current/Historical Medications Scheduled Albuterol Hfa (Ventolin Hfa), 2-4 PUFFS INH Q6H Amoxicillin (Amoxil), 500 MG PO TID Aspirin (Aspirin Ec), 81 MG PO DAILY Bioflavonoid Products (Vitamin C), 1 TAB PO DAILY Docusate Sodium (Colace), 300 MG PO DAILY Guaifenesin-Codeine (Codeine/Guaifenesin 100-10 mg/5Ml), 1-2 TSP PO Q12 Insulin Aspart (Novolog Flexpen), 40-75 UNITS SQ EVERY MEALS Insulin Detemir (Levemir Flextouch), 70 UNITS SC HS Labetalol HCl (Labetalol HCl), 200 MG PO BID Levothyroxine Sodium (Levothyroxine Sodium), 112 MCG PO DAILY Metformin Hcl (Glucophage), 1,000 MG PO BID Multivit/Min/Iron/Fol Ac/Pren ( Vitamin), 1 TAB PO DAILY Progesterone (Vaginal) (Crinone), 1 APPLN PV UD Scheduled PRN Hydrocodone/Acetaminophen 5MG/325MG ([place] 5MG/325MG), 1 TAB PO BID PRN for Pain Prednisone (Prednisone), Unknown Dose PO DAILY PRN for Shortness of Breath Physical Exam Vital Signs Date Time Temp Pulse Resp B/P (MAP) Pulse Ox O2 Delivery O2 Flow Rate FiO2 04/15/17 12:24 102 20 131/74 95 04/15/17 11:06 90 14 119/72 98 Room Air 04/15/17 09:12 96 Room Air 04/15/17 09:11 94 20 131/87 97 Room Air 04/15/17 07:52 37.0 107 20 153/81 96 Room Air Physical Exam CONSTITUTIONAL: No acute distress. Mildly dehydrated, but otherwise well appearing and well nourished. Alert and oriented X 4 with normal affect. HEENT: Normocephalic, atraumatic. Pupils equal, round and reactive to light, EOMI. TMs normal. Pharynx normal. Tacky mucous membranes. NECK: Supple, full active range of motion without discomfort. RESPIRATORY: Clear to auscultation bilaterally with no wheezing, crackles, rhonchi or stridor. Equal expansion bilaterally. CARDIOVASCULAR: Regular rate and rhythm with no murmurs, rubs or gallops. Normal peripheral perfusion. No edema. GASTROINTESTINAL: Soft, nontender, nondistended. Gravid abdomen. Bowel sounds present in all quadrants. MUSCULOSKELETAL: Full range of motion of all joints without discomfort. INTEGUMENTARY: No rash or other significant dermatologic conditions noted. NEUROLOGIC: Cranial nerves II-XII grossly intact. No focal neurologic deficits noted. Medical Decision & Procedures Laboratory Results 04/15/17 08:50 Red Blood Count 4.41, Mean Corpuscular Volume 85.3, Mean Corpuscular Hemoglobin 28.1, Mean Corpuscular Hemoglobin Concent 33.0, Mean Platelet Volume 9.3, Neutrophils (%) (Auto) 80.8, Lymphocytes (%) (Auto) 8.6, Monocytes (%) (Auto) 8.9, Eosinophils (%) (Auto) 1.0, Basophils (%) (Auto) 0.1, Neutrophils # (Auto) 11.31, Lymphocytes # (Auto) 1.21, Monocytes # (Auto) 1.25, Eosinophils # (Auto) 0.14, Basophils # (Auto) 0.01 04/15/17 08:50 Test 04/15/17 08:48 04/15/17 08:50 04/15/17 09:00 Bedside Glucose 77 mg/dl (70-90) White Blood Count 14.00 K/uL (4.8-10.8) Red Blood Count 4.41 M/uL (4.2-5.4) Hemoglobin 12.4 g/dL (12.0-16.0) Hematocrit 37.6 % (37-47) Mean Corpuscular Volume 85.3 fL (80-100) Mean Corpuscular Hemoglobin 28.1 pg (25-34) Mean Corpuscular Hemoglobin Concent 33.0 g/dl (32-36) Platelet Count 330 K/uL (130-400) Mean Platelet Volume 9.3 fL (7.4-10.4) Neutrophils (%) (Auto) 80.8 % Lymphocytes (%) (Auto) 8.6 % Monocytes (%) (Auto) 8.9 % Eosinophils (%) (Auto) 1.0 % Basophils (%) (Auto) 0.1 % Neutrophils # (Auto) 11.31 K/uL (1.4-6.5) Lymphocytes # (Auto) 1.21 K/uL (1.2-3.4) Monocytes # (Auto) 1.25 K/uL (0.11-0.59) Eosinophils # (Auto) 0.14 K/uL (0-0.5) Basophils # (Auto) 0.01 K/uL (0-0.2) RDW Standard Deviation 43.0 fL (36.4-46.3) RDW Coefficient of Variation 13.8 % (11.5-14.5) Immature Granulocyte % (Auto) 0.6 % Immature Granulocyte # (Auto) 0.08 K/uL (0.00-0.02) Anion Gap 10.0 mmol/L (3-11) Est Creatinine Clear Calc Drug Dose 170.7 ml/min Estimated GFR () 139.6 Estimated GFR (Non- 120.4 BUN/Creatinine Ratio 14.3 (10-20) Calcium Level 9.8 mg/dl (8.5-10.1) Total Bilirubin 0.4 mg/dl (0.2-1) Aspartate Amino Transf (AST/SGOT) 14 U/L (15-37) Alanine Aminotransferase (ALT/SGPT) 16 U/L (12-78) Alkaline Phosphatase 81 U/L (45-117) Total Protein 7.4 gm/dl (6.4-8.2) Albumin 2.8 gm/dl (3.4-5.0) Globulin 4.6 gm/dl (2.5-4.0) Albumin/Globulin Ratio 0.6 (0.9-2) Urine Color DK YELLOW Urine Appearance CLOUDY (CLEAR) Urine pH 6.5 (4.5-7.5) Urine Specific [place] 1.029 (1.000-1.030) Urine Protein TRACE (NEG) Urine Glucose (UA) NEG (NEG) Urine Ketones TRACE (NEG) Urine Occult Blood NEG (NEG) Urine Nitrite NEG (NEG) Urine Bilirubin 1+ (NEG) Urine Urobilinogen NEG (NEG) Urine Leukocyte Esterase TRACE (NEG) Urine WBC (Auto) 1-5 /hpf (0-5) Urine RBC (Auto) 0-4 /hpf (0-4) Urine Hyaline Casts (Auto) 5-10 /lpf (0-5) Urine Epithelial Cells (Auto) >30 /lpf (0-5) Urine Bacteria (Auto) NEG (NEG) Urine Crystals CALCIUM OXALATE (NONE Medications Administered Medications (Trade) Dose Ordered Sig/Newton Route Start Time Stop Time Status Last Admin Dose Admin Albuterol/ Ipratropium (Duoneb) 3 ml NOW STAT INH 04/15/17 08:23 04/15/17 08:29 DC 04/15/17 08:51 3 ML Sodium Chloride 1,000 ml @ 999 mls/hr Q1H1M STAT IV 04/15/17 08:23 04/15/17 09:23 DC 04/15/17 08:53 999 MLS/HR Guaifenesin (Robitussin Sugar Free Syrup) 200 mg NOW STAT PO 04/15/17 08:23 04/15/17 08:29 DC 04/15/17 09:10 200 MG Codeine Sulfate (Codeine Tab) 15 mg NOW STAT PO 04/15/17 08:50 04/15/17 08:51 DC 04/15/17 08:50 15 MG Medical Decision CC: Patient presenting with complaint of cough Interpretation of Labs: Leukocytosis, no anemia, significant electrolyte abnormalities, normal renal function, normal liver and. UA shows trace proteinuria and ketonuria. Differential Diagnosis: Includes, but not limited to viral URI, bronchitis, asthma, dehydration, bronchospasm, pneumonia. Medication Reconciliation: I attest that I have personally reviewed the patient' s current medication list. Vital signs review: I reviewed the patient's vital signs and interpret them as follows: T: Afebrile; BP: Hypertensive; HR: Tachycardic; RR: Within normal limits; Pulse Ox: Within normal limits on room air. Blood pressure screening: The patient was found to have an elevated blood pressure and was referred to their primary doctor for recheck and further treatment. Summary: Patient was evaluated at bedside, history of physical exam performed. Alert and oriented, in no acute distress and nontoxic appearing, resting calmly in the stretcher. Lungs are clear, no tachypnea, no increased work of breathing or retractions, patient denies shortness of breath. Orders were placed at bedside for labs, UA, IV fluids for hydration, codeine- guaifenesin to treat cough. I discussed risks and benefits of chest x-ray given patient's state, she prefers not to have an x-ray done. Her lungs are clear and she has been afebrile, and she is already on antibiotics , so I do not feel a chest x-ray is necessary at this time. She is mildly tachycardic and hypertensive today, though she does note she has been using albuterol today, which I suspect may be the cause of this. Patient discussed with Dr. Goode, who agrees with my assessment and plan. Labs reviewed, trace proteinuria, which patient states she already has a history of, no other significant abnormalities. Patient reassessed multiple times throughout ED stay, she reports feeling much better after receiving medication for her cough. She is no longer tachycardic after receiving IV fluids. She was instructed to follow closely with her PCP for reevaluation, as well as return precautions should her symptoms worsen, she verbalized understanding. Patient was discharged home in stable condition and ambulatory Medication Reconcilliation Current Medication List: was personally reviewed by me Blood Pressure Screening Patient's blood pressure: Elevated blood pressure Impression Primary Impression: Acute bronchitis Departure Information Dispostion Home / Self-Care Condition GOOD Prescriptions Guaifenesin-Codeine (Codeine/Guaifenesin 100-10 mg/5Ml) 1 Odalys Odalys 1-2 TSP PO Q12 for 3 Days, #60 ML Prov: Bethany Oconnor CRNP 04/15/17 Referrals Joel Conklin M.D. (PCP) Patient Instructions Codeine Guaifenesin oral solution or syrup, ED Bronchitis Asthmatic, My [facility] Additional Instructions Follow-up with your PCP tomorrow for recheck. You may take the guaifenesin-codeine syrup 1-2 teaspoons twice a day to help with cough. Continue your antibiotics and steroid as prescribed. Continue to use the albuterol inhaler 2 puffs every 4 hours as needed for cough and wheezing or chest tightness. Patient your drinking plenty of fluids to stay well hydrated and try to get some good rest. You may use a vaporizer or humidifier in your room to help improve your congestion. You may also try saline nasal spray to help reduce congestion and drainage. Please return to the emergency department for any worsening symptoms, including shortness of breath, chest pain, severe dizziness or passing out, coughing up blood, fevers or chills, or any other worsening symptoms. Work Instructions Return To Work: 2 days Problem Qualifiers Primary Impression: Acute bronchitis Bronchitis organism: unspecified organism Qualified Codes: J20.9 - Acute bronchitis, unspecified
[2017-04-15 09:30] LABS: CREATININE 0.53 mg/dl (0.60-1.20)
[2017-04-15 09:31] LABS: BUN/CREATININE RATIO 14.3 (10-20); CALCIUM 9.8 mg/dl (8.5-10.1); POTASSIUM 3.7 mmol/L (3.5-5.1)
[2017-04-15 09:33] LABS: ALB/GLOB RATIO 0.6 (0.9-2)
[2017-04-15 09:48] LABS: MANUAL MICROSCOPIC REQUIRED? NO; REVIEW REQ? YES; URINE BILIRUBIN 1+ (NEG)
[2017-04-15] MEDS ORDERED: GUAI1SOL5 PO (12:00)
[2017-04-15 12:24] VITALS: BP 131/74; PULSE 102; O2SAT 95
--- NOTE | 2017-04-17 13:45 | Pharmacy Progress Note ---
ED Pharmacist Culture FollowUp Date of Service: Apr 17, 2017. Patient's urine cx from 04/15 is growing >100,000 CFU/mL klebsiella pneumoniae. She is 17 wks and had presented with acute bronchitis and was already taking Amoxil. She denied urinary symptoms. UA was suggestive of possible contamination. Given this could be a case of contamination vs asymptomatic bacteruria in , the case was discussed w/ Dr Goode. The plan is to have the patient f/u with her OB[facility] for repeat urine cx to determine if asymptomatic bacteruria is present which would require treatment. I attempted to contact the patient w/ the phone # provided: [phone]
== END 2017-04-15 12:26 | disposition home or self-care (01) ==
LOC: C.EDB 07:50
DX: J20.9 Acute bronchitis, unspecified (principal); O24.111 Pre-existing type 2 diabetes mellitus, in pregnancy, first trimester; E11.9 Type 2 diabetes mellitus without complications; Z79.4 Long term (current) use of insulin; Z83.3 Family history of diabetes mellitus; Z82.49 Family history of ischemic heart disease and other diseases of the circulatory system

== ENCOUNTER 2017-07-22 17:34 | Outpatient (CLI) | payer OTHER ==
[~2017-07-22] VITALS: Ht 165.1 cm; Wt 105.5 kg
[~2017-07-22 17:34] MED LIST changes: +AMOX500C3 PO; +BIOF500C2 PO; +DOCU-94 PO; +GUAI1SOL5 PO; +PRD/1 PO; -PROG1CAP PV; +PROG1GEL PV; +VNTHFA/IN INH
[2017-07-22] MEDS ORDERED: NURSING VERBAL MED ORDER ONE ×3 (18:00→18:30)
[2017-07-22 18:42] LABS: BASO % 0.1 %; BASO ABS # 0.01 K/uL (0-0.2); EOS % 2.9 %; EOS ABS # 0.28 K/uL (0-0.5); HEMATOCRIT 35.9 % (37-47); HEMOGLOBIN 12.1 g/dL (12.0-16.0); IG# 0.05 K/uL (0.00-0.02); LYMPH % 15.3 %; LYMPH ABS # 1.46 K/uL (1.2-3.4); MEAN CELL VOLUME 87.8 fL (80-100); MEAN CORPUSCULAR HEMOGLOBIN 29.6 pg (25-34); MEAN CORPUSCULAR HGB CONC 33.7 g/dl (32-36); MEAN PLATELET VOLUME 9.5 fL (7.4-10.4); MONO ABS # 0.67 K/uL (0.11-0.59); NEUT % 74.2 %; NEUT ABS # 7.05 K/uL (1.4-6.5); PLATELET COUNT 210 K/uL (130-400); RED CELL DISTRIBUTION WIDTH CV 15.3 % (11.5-14.5); RED CELL DISTRIBUTION WIDTH SD 49.8 fL (36.4-46.3); WHITE BLOOD COUNT 9.52 K/uL (4.8-10.8)
[2017-07-22] MEDS ORDERED: OXYCODONE/ACETAMINOPHEN 5-325 TAB PO PRN (18:45)
[2017-07-22 19:09] LABS: ALBUMIN 2.8 gm/dl (3.4-5.0); ALT/SGPT 21 U/L (12-78); BLOOD UREA NITROGEN 9 mg/dl (7-18); CARBON DIOXIDE 23 mmol/L (21-32); GLUCOSE 112 mg/dl (70-99); POTASSIUM 3.4 mmol/L (3.5-5.1); SODIUM 138 mmol/L (136-145)
[2017-07-22 19:12] LABS: ALKALINE PHOSPHATASE 69 U/L (45-117); AST/SGOT 13 U/L (15-37); TOTAL PROTEIN 6.3 gm/dl (6.4-8.2)
[2017-07-22] MEDS ORDERED: INSU1INJ2 SQ (19:29)
[2017-07-22] MEDS ORDERED: LVMIPEN SQ (19:29)
[2017-07-22 20:08] VITALS: Ht 165.1 cm; Wt 105.5 kg
[2017-07-22] MEDS ORDERED: LABETALOL HCL 100 MG TAB PO ONE (20:15)
[2017-07-22] MEDS ORDERED: METFORMIN HCL 500 MG TAB PO ONE (20:21)
[2017-07-22] MEDS ORDERED: GLUCAGON FOR INJ 1 MG VIAL SQ PRN (20:45)
[2017-07-22] MEDS ORDERED: NovoLOG PER UNIT CHARGE SC ONE (20:45)
[2017-07-22] MEDS ORDERED: GLUCOSE 10 TABS/TUBE PO PRN (20:45)
[2017-07-22] MEDS ORDERED: DEXTROSE 50% 50 ML SYR IV PRN (20:45)
[2017-07-22] MEDS ORDERED: GLUCOSE 40% GEL 15 GM TUBE PO PRN (20:45)
[2017-07-22] MEDS ORDERED: INSULIN ASPART 100 UNITS/ML 3 ML PEN SC SCH (22:00)
== END 2017-07-22 21:30 | disposition home or self-care (01) ==
LOC: C.LD 17:34 → C.OPB 17:34
PROVIDERS: ATTEND Obstetrics & Gynecology
DX: O16.3 Unspecified maternal hypertension, third trimester (principal); R51 Headache; O24.113 Pre-existing type 2 diabetes mellitus, in pregnancy, third trimester; E11.9 Type 2 diabetes mellitus without complications; O09.523 Supervision of elderly multigravida, third trimester; O99.213 Obesity complicating pregnancy, third trimester; Z3A.30 30 weeks gestation of pregnancy

== ENCOUNTER 2017-09-13 13:43 | Outpatient (CLI) | payer OTHER ==
[~2017-09-13] VITALS: Ht 167.6 cm; Wt 112.0 kg
[~2017-09-13 13:43] MED LIST changes: -AMOX500C3 PO; -BIOF500C2 PO; -DOCU-94 PO; -GUAI1SOL5 PO; +INSU1INJ2 SQ; -LVMIPEN SC; +LVMIPEN SQ; -NVLGI/PEN SQ; -PRD/1 PO; -PROG1GEL PV; -VNTHFA/IN INH
[2017-09-13 14:32] VITALS: Ht 167.6 cm; Wt 112.0 kg
--- NOTE | 2017-09-13 14:49 | Progress Note ---
Progress Note Date of Service Sep 13, 2017. Progress Note Pt seen and evaluated for dec movement SGA; 28 weeks FHR CAT1 pt reassured VE; 1-2/post
--- NOTE | 2017-09-13 14:55 | Discharge Instructions ---
Discharge Instructions Date of Service Sep 13, 2017. Admission Reason for Admission: Decreased Movement Discharge Discharge Diagnosis / Problem: decrease movement Discharge Goals Goal(s): Continuing OB care Activity Recommendations Activity Limitations: as noted below SPECIAL CARE INSTRUCTIONS: Call Doctor if: * Regular contractions every 5 minutes or greater than contractions in one hour. * Bleeding * Water breaks or is leaking * Decreased movement * Fever >100.4 degrees F * Pain not relieved by routine measures or pain medication ordered. FOLLOW UP VISIT: Return to Labor and Delivery on for /call for appointment time . Follow-up Visit with: When: . Current Hospital Diet Patient's current hospital diet: Discharge Diet Recommended Diet: Regular Diet Pending Studies Studies pending at discharge: no Medical Emergencies . Who to Call and When: Medical Emergencies: If at any time you feel your situation is an emergency, please call 911 immediately. . Non-Emergent Contact Non-Emergency issues call your: Specialist . . "Provider Documentation" section prepared by Rodrigue Lagos. .
== END 2017-09-13 14:38 | disposition home or self-care (01) ==
LOC: C.OPB 13:43 → C.LD 13:44 → C.OPB 14:38
PROVIDERS: ATTEND Obstetrics & Gynecology
DX: O36.8130 Decreased fetal movements, third trimester, not applicable or unspecified (principal); Z3A.28 28 weeks gestation of pregnancy

== ENCOUNTER 2017-10-04 14:26 | Emergency (ER) | payer OTHER ==
[~2017-10-04] VITALS: Ht 167.6 cm; Wt 109.0 kg
[2017-10-04 14:37] VITALS: TEMP 36.9; Ht 167.6 cm; Wt 109.0 kg
[2017-10-04] MEDS ORDERED: SODIUM CHLORIDE 0.9% 1000ML 1,000 ML IV STA (14:46)
[2017-10-04] MEDS ORDERED: ONDANSETRON INJ 2 MG/ML 2 ML VIAL IV STA (14:46)
[2017-10-04] MEDS ORDERED: MoRPHine SULFATE 4 MG/ML 1 ML CARP\\VIAL IV STA (14:46)
--- NOTE | 2017-10-04 14:53 | EMERGENCY ROOM VISIT NOTE ---
History Report prepared by Johana: Cole Lopez Under the Supervision of: Dr. Shamika Espinosa M.D. First contact with patient: 14:39 Chief Complaint: OTHER COMPLAINT Stated Complaint: C SECTION RELATED PAIN History of Present Illness The patient is a 37 year old female who presents to the Emergency Room with complaints of constant suprapubic abdominal pain beginning 09/26/2017. The patient states that she had a repeat on the 09/26/2017 and has had a hard mass under the incision since. She notes that she also has pain below the incision line. She reports that she is also experiencing a decreased urgency of urination and urinary burning. She denies any vomiting, fevers, vaginal discharge, CP, SOB, and melena. The patient states that her was normal. She notes that she took oxycodone, ibuprofen, and Tylenol at 0930 this morning. She reports that she has a history of type 2 diabetes. Source of History: patient Onset: 09/26/2017 Position: abdomen (suprapubic region) Timing: constant Associated Symptoms: + urinary symptoms (decreased urgency and urinary burning), No fevers, No chest pain, No SOB, No vomiting, No melena Note: She notes that she has a mass below her incision. She also denies any vaginal discharge. Review of Systems See HPI for pertinent positives & negatives. A total of 10 systems reviewed and were otherwise negative. Past Medical & Surgical Medical Problems: (1) Cholecystectomy (2) Decreased movement affecting management of in third trimester (3) Kidney stone (4) Miscarriage (5) Thyroid disease (6) Type 2 diabetes mellitus Surgical Problems: (1) H/O: Family History Cancer Diabetes mellitus Gallbladder disease Heart disease Hypertension Kidney disease Kidney stones Social History Smoking Status: Never Smoker Alcohol Use: none Drug Use: none Marital Status: Housing Status: lives with family Occupation Status: employed Current/Historical Medications Scheduled Aspirin (Aspirin Ec), 81 MG PO DAILY Insulin Detemir (Levemir Flextouch), 30 SQ BID Labetalol Hcl (Normodyne), 100 MG PO BID Levothyroxine Sodium (Levothyroxine Sodium), 1 TAB PO DAILY Metformin Hcl (Glucophage), 1,000 MG PO BID Multivit/Min/Iron/Fol Ac/Pren ( Vitamin), 1 TAB PO DAILY Scheduled PRN Acetaminophen (Tylenol), 650 MG PO Q8H PRN for Pain Ibuprofen Tab (Motrin), 800 MG PO Q8H PRN for Pain Oxycodone Ir (Roxicodone Ir), 5 MG PO Q4H PRN for Severe Pain Allergies Coded Allergies: Quinolones (Verified Allergy, Severe, HIVES, 10/04/17) pt is not aware of this allergy Ciprofloxacin (Unverified Allergy, Unknown, hives , 10/04/17) Physical Exam Vital Signs Date Time Temp Pulse Resp B/P (MAP) Pulse Ox O2 Delivery O2 Flow Rate FiO2 10/04/17 16:50 65 18 138/79 95 Room Air 10/04/17 14:37 36.9 70 18 167/85 98 Room Air Physical Exam Vital signs reviewed. General: Well-appearing female, in no significant distress, obese HEENT: No scleral icterus, PERRLA, neck supple. Atraumatic. Cardiovascular: Regular rate and rhythm, no extra sounds. Pulmonary: Clear to auscultation bilaterally, normal work of breathing. Abdomen: Soft, nondistended, positive bowel sounds, Pfannenstiel incision that is well healing, intact, no drainage, no surrounding erythema. Suprapubic mass 4cm with no erythema and is tender to palpation. Musculoskeletal: Atraumatic, no peripheral edema. Neurologic: Patient awake alert and oriented x 3 Skin: Warm, dry, psoriatic changes to hairline of forehead, patchy areas to the back. Medical Decision & Procedures ER Provider Diagnostic Interpretation: Radiology results as stated below per my review and radiologist interpretation: ABDOMEN LIMITED (US) FINDINGS: Linear region of soft tissue edematous and or granulation type tissue change in the suprapubic region. This measures approximately 4 x 1 x 6 cm. No evidence for drainable abscess or collection. IMPRESSION: Hypoechoic linear collection of complex soft tissue and/or edematous/granulation tissue from prior . This statistically is most consistent with that of postoperative scar tissue. The above report was generated using voice recognition software. It may contain grammatical, syntax or spelling errors. Electronically signed by: Grabiel Olsen M.D. 10/04/2017 4:23 PM Laboratory Results 10/04/17 15:05 Red Blood Count 3.92, Mean Corpuscular Volume 88.0, Mean Corpuscular Hemoglobin 28.8, Mean Corpuscular Hemoglobin Concent 32.8, Mean Platelet Volume 9.2, Neutrophils (%) (Auto) 61.9, Lymphocytes (%) (Auto) 21.2, Monocytes (%) (Auto) 11.2, Eosinophils (%) (Auto) 4.8, Basophils (%) (Auto) 0.2, Neutrophils # (Auto ) 3.36, Lymphocytes # (Auto) 1.15, Monocytes # (Auto) 0.61, Eosinophils # (Auto ) 0.26, Basophils # (Auto) 0.01 10/04/17 15:05 Test 10/04/17 15:05 10/04/17 15:20 White Blood Count 5.43 K/uL (4.8-10.8) Red Blood Count 3.92 M/uL (4.2-5.4) Hemoglobin 11.3 g/dL (12.0-16.0) Hematocrit 34.5 % (37-47) Mean Corpuscular Volume 88.0 fL (80-100) Mean Corpuscular Hemoglobin 28.8 pg (25-34) Mean Corpuscular Hemoglobin Concent 32.8 g/dl (32-36) Platelet Count 296 K/uL (130-400) Mean Platelet Volume 9.2 fL (7.4-10.4) Neutrophils (%) (Auto) 61.9 % Lymphocytes (%) (Auto) 21.2 % Monocytes (%) (Auto) 11.2 % Eosinophils (%) (Auto) 4.8 % Basophils (%) (Auto) 0.2 % Neutrophils # (Auto) 3.36 K/uL (1.4-6.5) Lymphocytes # (Auto) 1.15 K/uL (1.2-3.4) Monocytes # (Auto) 0.61 K/uL (0.11-0.59) Eosinophils # (Auto) 0.26 K/uL (0-0.5) Basophils # (Auto) 0.01 K/uL (0-0.2) RDW Standard Deviation 45.7 fL (36.4-46.3) RDW Coefficient of Variation 14.2 % (11.5-14.5) Immature Granulocyte % (Auto) 0.7 % Immature Granulocyte # (Auto) 0.04 K/uL (0.00-0.02) Anion Gap 8.0 mmol/L (3-11) Est Creatinine Clear Calc Drug Dose 125.4 ml/min Estimated GFR () 115.3 Estimated GFR (Non- 99.5 BUN/Creatinine Ratio 15.9 (10-20) Calcium Level 8.7 mg/dl (8.5-10.1) Total Bilirubin 0.4 mg/dl (0.2-1) Direct Bilirubin 0.1 mg/dl (0-0.2) Aspartate Amino Transf (AST/SGOT) 21 U/L (15-37) Alanine Aminotransferase (ALT/SGPT) 34 U/L (12-78) Alkaline Phosphatase 70 U/L (45-117) Total Protein 6.6 gm/dl (6.4-8.2) Albumin 2.9 gm/dl (3.4-5.0) Urine Color YELLOW Urine Appearance CLEAR (CLEAR) Urine pH 5.5 (4.5-7.5) Urine Specific [place] 1.019 (1.000-1.030) Urine Protein NEG (NEG) Urine Glucose (UA) NEG (NEG) Urine Ketones NEG (NEG) Urine Occult Blood NEG (NEG) Urine Nitrite NEG (NEG) Urine Bilirubin NEG (NEG) Urine Urobilinogen NEG (NEG) Urine Leukocyte Esterase NEG (NEG) Laboratory results per my review. Medications Administered Medications (Trade) Dose Ordered Sig/[place] Route Start Time Stop Time Status Last Admin Dose Admin Morphine Sulfate (MoRPHine SULFATE INJ) 4 mg NOW STAT IV 10/04/17 14:46 10/04/17 14:50 DC 10/04/17 15:15 4 MG Ondansetron HCl (Zofran Inj) 4 mg NOW STAT IV 10/04/17 14:46 10/04/17 14:50 DC 10/04/17 15:15 4 MG Sodium Chloride 1,000 ml @ 999 mls/hr Q1H1M STAT IV 10/04/17 14:46 10/04/17 15:46 DC 10/04/17 15:16 999 MLS/HR ED Course 1443: Past medical records reviewed. The patient was evaluated in room C9. A complete history and physical examination was performed. 1446: Zofran Inj 4mg IV, Morphine Sulfate 4mg IV, Sodium Chloride 1000 ml @ 999 mls/hr IV 1652: I reevaluated and updated the patient. She looks fine. I explained her US findings to her. She will follow up with OB Friday. 1723: Upon reevaluation, the patient appeared to have improvement of her symptoms. I discussed findings with her. She verbalized agreement of the treatment plan. The patient was discharged home. Medical Decision Differential diagnoses include: hernia, hematoma, abscess, and cellulitis. This pt was evaluated and appeared to be in no distress. IV access was obtained and lab work was drawn. UA was obtained and is negative. UA of suprapubic mass reveals likely granulation tissue postoperatively, no evidence of fluid collection. Pt was given IV morphine and zofran and hydrated with NSS. Pt was advised of the findings. She was d/c to care of her to continue current medications. She will f/u with OBGYN this week for further management. Medication Reconcilliation Current Medication List: was personally reviewed by me Blood Pressure Screening Patient's blood pressure: Elevated blood pressure Follow up with OBGYN. Impression Primary Impression: Suprapubic pain, acute Additional Impression: Postoperative granulation of tissue Scribe Attestation The scribe's documentation has been prepared under my direction and personally reviewed by me in its entirety. I confirm that the note above accurately reflects all work, treatment, procedures, and medical decision making performed by me. Departure Information Dispostion Home / Self-Care Referrals Joel Conklin M.D. (PCP) Forms HOME CARE DOCUMENTATION FORM, IMPORTANT VISIT INFORMATION, WORK / SCHOOL INSTRUCTIONS Patient Instructions My [facility] Additional Instructions Diagnosis: Suprapubic abdominal pain, granulation tissue Continue ibuprofen and oxygen as needed for pain. Wear supportive underwear such as Spanx to help support the suprapubic region Follow-up with [facility] [facility] in 2 days as scheduled. Return to the emergency department for worsening of symptoms or any medical concerns. Problem Qualifiers
[2017-10-04] MEDS ORDERED: ACET-1311 PO (15:16)
[2017-10-04] MEDS ORDERED: LEVO75TA5 PO (15:16)
[2017-10-04] MEDS ORDERED: LBT/100 PO (15:16)
[2017-10-04] MEDS ORDERED: IBUP-1451 PO (15:16)
[2017-10-04] MEDS ORDERED: OXYC1TAB3 PO (15:16)
[2017-10-04 15:20] LABS: BASO % 0.2 %; BASO ABS # 0.01 K/uL (0-0.2); EOS % 4.8 %; EOS ABS # 0.26 K/uL (0-0.5); HEMATOCRIT 34.5 % (37-47); HEMOGLOBIN 11.3 g/dL (12.0-16.0); IG# 0.04 K/uL (0.00-0.02); LYMPH % 21.2 %; LYMPH ABS # 1.15 K/uL (1.2-3.4); MEAN CORPUSCULAR HEMOGLOBIN 28.8 pg (25-34); MEAN CORPUSCULAR HGB CONC 32.8 g/dl (32-36); MEAN PLATELET VOLUME 9.2 fL (7.4-10.4); MONO % 11.2 %; MONO ABS # 0.61 K/uL (0.11-0.59); NEUT % 61.9 %; NEUT ABS # 3.36 K/uL (1.4-6.5); PLATELET COUNT 296 K/uL (130-400); RED CELL DISTRIBUTION WIDTH CV 14.2 % (11.5-14.5); RED CELL DISTRIBUTION WIDTH SD 45.7 fL (36.4-46.3); WHITE BLOOD COUNT 5.43 K/uL (4.8-10.8)
[2017-10-04 16:15] LABS: POTASSIUM 3.9 mmol/L (3.5-5.1)
[2017-10-04 16:20] LABS: ALBUMIN 2.9 gm/dl (3.4-5.0); CALCIUM 8.7 mg/dl (8.5-10.1); CREATININE 0.76 mg/dl (0.60-1.20); TOTAL PROTEIN 6.6 gm/dl (6.4-8.2)
--- NOTE | 2017-10-04 16:25 | DIAGNOSTIC IMAGING REPORT ---
ABDOMEN LIMITED (US) HISTORY: Mass. Pain. suprapubic mass, tender. 2 weeks s/p c section.. COMPARISON: None. FINDINGS: Linear region of soft tissue edematous and or granulation type tissue change in the suprapubic region. This measures approximately 4 x 1 x 6 cm. No evidence for drainable abscess or collection. IMPRESSION: Hypoechoic linear collection of complex soft tissue and/or edematous/granulation tissue from prior . This statistically is most consistent with that of postoperative scar tissue. The above report was generated using voice recognition software. It may contain grammatical, syntax or spelling errors. Electronically signed by: Grabiel Olsen M.D. 10/04/2017 4:23 PM Dictated Date/Time: 10/04/2017 4:22 PM
[2017-10-04 16:50] VITALS: BP 138/79; PULSE 65; O2SAT 95
== END 2017-10-04 17:18 | disposition home or self-care (01) ==
LOC: C.EDB 14:28 → C.EDC 17:18
DX: R10.2 Pelvic and perineal pain (principal); L92.8 Other granulomatous disorders of the skin and subcutaneous tissue; R30.0 Dysuria; E11.9 Type 2 diabetes mellitus without complications; Z79.4 Long term (current) use of insulin; Z79.82 Long term (current) use of aspirin; Z79.899 Other long term (current) drug therapy; Z88.1 Allergy status to other antibiotic agents; Z88.8 Allergy status to other drugs, medicaments and biological substances; Z87.442 Personal history of urinary calculi; Z82.49 Family history of ischemic heart disease and other diseases of the circulatory system; Z83.3 Family history of diabetes mellitus; Z83.79 Family history of other diseases of the digestive system; Z84.1 Family history of disorders of kidney and ureter